=== PATIENT | female | born 1965 | race Caucasian/White ===

== ENCOUNTER → 2024-03-27 | Outpatient (CLI) | payer OTHER, SELFPAY ==
--- NOTE | 2024-03-27 08:52 | MRI_ITS ---
EXAM: MR CERVICAL SPINE WITHOUT INTRAVENOUS CONTRAST CLINICAL INDICATION: cervical myelopathy, NECK PAIN, RT ARM RADICULOPATHY TECHNIQUE: Multiplanar and multisequence MR images of the cervical spine without intravenous contrast were performed. COMPARISON: No relevant prior studies available. FINDINGS: VERTEBRAE: Minimal anterior listhesis of C3 on C4, C5 and C6 and C7 on T1 likely related to underlying degenerative change. No acute fracture. No bone marrow edema. There is preservation of the normal cervical lordosis. SPINAL CORD: Unremarkable in signal and morphology. SOFT TISSUES: Normal. No prevertebral soft tissue swelling. LYMPH NODES: Normal. There is no cervical adenopathy. DISCS/SPINAL CANAL/NEURAL FORAMINA: C2-C3: Normal disc height and morphology. Normal spinal canal. Normal neuroforamina. C3-C4: Normal disc height and morphology. Normal spinal canal. Normal neuroforamina. C4-C5: Normal disc height and morphology. Normal spinal canal. Normal neuroforamina. C5-C6: Mild to moderate disc space narrowing. Mild disc bulging without compression of the thecal sac. No spinal stenosis. Mild neural foraminal narrowing related to uncinate joint hypertrophy. C6-C7: Mild/moderate disc space narrowing. Mild right central disc protrusion results in mild narrowing of the right lateral recess and adjacent foramen. No significant spinal stenosis. Additional narrowing of the left neural foramen related to uncinate joint hypertrophy. C7-T1: Normal disc height and morphology. Normal spinal canal. Normal neuroforamina. MRI/Spine Cervical (Routine) IMPRESSION: 1. Mild degenerative changes as described without spinal stenosis. 2. Narrowing of the right C6-7 lateral recess related to disc protrusion. 3. Neural foraminal narrowing at C5-6 and C6-7 as described. Electronically Signed: Ramu Vila MD at 16:19 EST ,
== END | disposition home or self-care (01) ==
LOC: MRI 08:48
PROVIDERS: Referring Provider Student in an Organized Health Care Education/Training Program; Visit Provider Student in an Organized Health Care Education/Training Program
DX: G95.9 Disease of spinal cord, unspecified (principal)
CPT/HCPCS: 72141

== ENCOUNTER → 2024-05-19 | Outpatient (CLI) | payer OTHER, SELFPAY ==
--- NOTE | 2024-05-19 14:00 | NEURO ---
NCS and/or EMG Patient Report Ordering Doctor: Izaiah Diane DATE OF SERVICE: 05/19/24 Stefany presents for electrodiagnostic testing of the right upper limb. She reports numbness and tingling in the right hand. Electrodiagnostic findings: Right median motor nerve demonstrates normal distal latency, amplitude and conduction velocity. Right ulnar motor response is within normal limits, including conduction across the elbow. Normal right median and right ulnar F?waves. Sensory responses are normal. Needle EMG testing was performed the right upper limb. All muscles tested showed no evidence of denervation with normal motor unit action potentials. Electrodiagnostic impression: This is a normal electrodiagnostic study of the right upper limb. There is no electrodiagnostic evidence for peripheral neuropathy, including carpal tunnel or cubital tunnel syndrome. There is no electrodiagnostic evidence for cervical radiculopathy. Multi Select Codes Neurology Neurology Interp Codes: 47217-46 Musc test done w/n test comp (interp) and 06524-55 Nrv cndj test 7-8 studies (interp)
== END | disposition home or self-care (01) ==
LOC: PSN 13:22
PROVIDERS: Referring Provider Orthopaedic Surgery Orthopaedic Surgery of the Spine; Visit Provider Orthopaedic Surgery Orthopaedic Surgery of the Spine
DX: G56.20 Lesion of ulnar nerve, unspecified upper limb (principal)
CPT/HCPCS: 95886; 95910

== ENCOUNTER 2024-07-27 05:27 | Day surgery (SDC) | payer OTHER, SELFPAY ==
--- NOTE | 2024-07-15 07:59 | EKG12_ITS ---
Test Reason : PRE OP Blood Pressure : */* mmHG Vent. Rate : 71 BPM Atrial Rate : 71 BPM P-R Int : 138 ms QRS Dur : 92 ms QT Int : 376 ms P-R-T Axes : 77 95 49 degrees QTcB Int : 408 ms Normal sinus rhythm Possible Left atrial enlargement Rightward axis Incomplete right bundle branch block Borderline ECG Confirmed by PREMA AYALA, CAMILA ([id number]), medical editor EDILMA RODRIGUEZ ([id number]) on 07/16/2024 9:48:24 AM Referred By: Izaiah Diane Confirmed By: CAMILA LLOYD MD
[2024-07-15 08:52] LABS: Absolute Lymphocyte Count 2.06 X10^3/uL (0.83-4.51); Basophil# 0.01 X10^3/uL; Basophil% 0.2 % (0-1); Eosinophil# 0.17 X10^3/uL; Hematocrit 37.1 % (37-47); Hemoglobin 12.4 g/dL (12.0-15.0); Lymphocyte # 2.06 X10^3/ul (0.83-4.51); Lymphocyte % 35.9 % (19-41); Mean Corp Hgb Conc 33.4 g/dL (32-36); Mean Corpuscular Hgb 30.1 pg (27.0-32.0); Mean Platelet Vol. 9.5 fl (6.2-12.0); Monocyte# 0.49 X10^3/uL; Monocyte% 8.5 % (0-10); NRBC Flagged by Analyzer 0 % (0-5); Neutrophil % 52.2 % (47-70); Platelet Count 314 K/mm3 (150-450); RBC Distribution Width CV 13.1 % (11.6-14.6); RBC Distribution Width SD 43.5 fl (35.1-43.9); Red Blood Count 4.12 M/mm3 (4.2-5.4); White Blood Count 5.7 K/mm3 (4.4-11.0)
[2024-07-15 11:49] LABS: Anion Gap 15 (5-15); BUN 17 mg/dL (4-19); BUN/Creat Ratio 19.7 RATIO (10-20); Calcium,Total 9.8 mg/dL (7.6-11.0); Carbon Dioxide 22.1 mmol/L (21.0-32.0); Chloride 103 mmol/L (98-108); Creatinine, Serum 0.87 mg/dL (0.70-1.20); EST Glomerular Filtration Rate 76 (>60); Glucose 88 mg/dL (70-99); HIV Nonreactive (Nonreactive); Hepatitis C Antibody Nonreactive (Nonreactive); Magnesium 2.2 mg/dL (1.5-2.2); Potassium 3.9 mmol/L (3.3-5.1); Sodium Level 140 mmol/L (133-145)
[2024-07-15 18:08] LABS: Hepatitis B Surface Antibody REAC
--- NOTE | 2024-07-15 20:46 | PAT.ANESEVAL ---
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 When Was Last Pacemaker Check QUESTION #4 FULL TEXT: You/Your Family Experience fever (hyperthermia) with Anesthesia Last Oral Intake Last Oral intake: Last Oral Intake NPO since Meds taken in AM with sips of water? Meds patient instructed to take am of surgery PONV PONV - swimming pool plasterer helper: PONV - swimming pool plasterer helper Female Yes 07/13/24 13:54 HX of Motion Sickness Yes 07/13/24 13:54 HX of N/V After Surgery No 07/13/24 13:54 Non-Smoker Yes 07/13/24 13:54 Duration of Surgery greater Yes 07/13/24 13:54 than 60 minutes Number of Risk Factors 4 07/13/24 13:54 PONV Score Severe Risk 07/13/24 13:54 Height & Weight Height & Weight: Anesthesia: Height & Weight Height 5 ft 3 in 03/05/24 08:07 Respiratory Assessment Respiratory Assessment - swimming pool plasterer helper: Respiratory Tract Infection Hx - swimming pool plasterer helper Hx Respiratory Tract Infection No 07/13/24 13:54 STOP Sleep Apnea STOP Sleep Apnea - swimming pool plasterer helper: STOP Sleep Apnea - swimming pool plasterer helper Hx Hypertension No 07/13/24 13:54 Hx Sleep Apnea No 07/13/24 13:54 CPAP BIPAP Do you snore loudly (louder No 07/13/24 13:54 than talking or can be heard Do you often feel tired/ No 07/13/24 13:54 fatigued/ sleepy during daytime? Has anyone observed you stop No 07/13/24 13:54 breathing during sleep? STOP Results Negative 07/13/24 13:54 QUESTION #5 FULL TEXT : Do you snore loudly (louder than talking or can be heard through closed doors)? Tobacco Use History Tobacco Use History - swimming pool plasterer helper: Tobacco Use History - swimming pool plasterer helper Tobacco Use Smoking Status Never smoker 07/13/24 13:54 Hx Tobacco Use No 07/13/24 13:54 Years Smoking Packs Smoked per Day Smoking Cessation Date was within the last 15 years Hx Smoking Cessation Date Hx Smoking Cessation Counseling Hematologic Medial History Hematologic Hx - swimming pool plasterer helper: Hematologic Medical Hx - rehab spec Hx of Blood Transfusion No 07/13/24 13:54 Hx of Transfusion in last 3 No 07/13/24 13:54 Months Date of Last Transfusion (if within last 3 months) Ever experience any problems No 07/13/24 13:54 with transfusion(s)? Specify any problems Hx of Preganancy in last 3 N/A 07/13/24 13:54 Months Nurse Filling Out Transfusion NBUCHER 07/13/24 13:54 & Questions: Date: 07/13/24 07/13/24 13:54 Time: 13:55 07/13/24 13:54 Patient unable to answer at this time (ie. confused, unrespo /Reproduction History /Reproductive History - swimming pool plasterer helper: /Reproductive Hx- swimming pool plasterer helper Hx Now No 07/13/24 13:54 Gestational Age (in weeks): EDC: Hx Hx Para Hx Section SAB No 07/13/24 13:54 PFSH Medical History Wears glasses Electronic cigarette use Marijuana use Arthritis History of IBS Non-smoker Home Medications ?Medication ?Instructions ?Recorded ?Last Taken ?Type NK 03/05/24 Unknown History Allergy/AdvReac Type Severity Reaction Status Date / Time celecoxib (From Celebrex) Allergy Swelling Verified 06/01/24 13:08 hydrocodone (From Vicodin) Allergy Vomiting Verified 06/01/24 13:08 Surgical History (Updated 07/13/24 @ 14:01 by Marilynn Porter) History of colonoscopy H/O left knee surgery (~06/28/24) Hx of total hysterectomy (~1988) History of tonsillectomy Social History (Updated 05/11/24 @ 07:39 by Heidy Chavez) household members: spouse Smoking Status: Never smoker alcohol intake: current substance use type: marijuana Audit: Pertinent Findings Pertinent Findings EKG Perinent findings: April 02, 2024. Sinus rhythm. Anterior septal infarct, age undetermined. Left atrial enlargement consider biatrial enlargement. Recommendation Anesthesia Recommendation Anesthesia recommendation: OPTIMIZED for anesthesia
[2024-07-16 05:07] LABS: Hepatitis A AB, Total Negative (Negative)
[2024-07-27] VITALS (13 sets, daily range): BP systolic 101–123; BP diastolic 71–84; PULSE 56–71; RESP 12–18; TEMP 36.1–36.8; O2SAT 93–100
[2024-07-27] MEDS: 0.9% Normal Saline (1000mL) 1,000 ML 15 ML IV (05:55)
[2024-07-27] MEDS: Magnesium 1 GM over 15 mins IV (06:00)
[2024-07-27] MEDS: Acetaminophen 500 MG Tablet 1000 MG PO (06:16)
--- NOTE | 2024-07-27 06:23 | PRE.ANES_ITS ---
ASA Classification* ASA Classification ASA Classification: 3 Assessment & Plan Anesthesia* Anesthesia Assessment Anesthesia Assessment: Discussed sedation and/or anesthesia options, risks, benefits, and alternatives with patient/parents/legal guardian/POA. Questions invited. The patient/parents/legal guardian/POA seems to understand and agrees to proceed with anesthesia plan. Reviewed the physical assessment, medical history, allergy history and patient home medications list prior to surgery/procedure/anesthetic and documented any changes. Performed airway and anesthesia risk assessments. Anesthesia Type Anesthesia Type: General History Source History Obtained from:: Patient and Chart Anesthesia Focused Assessment* Temperature: 98.3 F Pulse Rate: 60 Blood Pressure: 101/71 Respiratory Rate: 16 Pulse Ox: 100 Oxygen Delivery Method: Room Air Airway Assessment Mouth opens: >3 cm Mallampati Score: IV Teeth Condition: Caps/Crowns (Patient has several crowns. They are all tight.) and Missing (Patient has several missing teeth. Rest are tight.) Neck Range of motion (ROM): Limited ROM Focused Labs Anesthesia Preop lab: CBC WBC 5.7 K/mm3 (4.4-11.0) 07/15/24 08:10 07/15/24 RBC 4.12 M/mm3 (4.2-5.4) L 07/15/24 08:10 07/15/24 Hgb 12.4 g/dL (12.0-15.0) 07/15/24 08:10 07/15/24 Hct 37.1 % (37-47) 07/15/24 08:10 07/15/24 Plt Count 314 K/mm3 (150-450) 07/15/24 08:10 07/15/24 CHEMISTRY Potassium 3.9 mmol/L (3.3-5.1) 07/15/24 08:10 07/15/24 Sodium 140 mmol/L (133-145) 07/15/24 08:10 07/15/24 Magnesium 2.2 mg/dL (1.5-2.2) 07/15/24 08:10 07/15/24 BUN 17 mg/dL (4-19) 07/15/24 08:10 07/15/24 Creatinine 0.87 mg/dL (0.70-1.20) 07/15/24 08:10 07/15/24 Glucose 88 mg/dL (70-99) 07/15/24 08:10 07/15/24 COAG Pre-Assessment Diagnosis/Proposed Procedure Planned Operative Procedure(s): Anterior cervical disc fusion C5-6 and C6-7 Anesthesia History 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 When Was Last Pacemaker Check QUESTION #4 FULL TEXT: You/Your Family Experience fever (hyperthermia) with Anesthesia Last Oral Intake Last Oral intake: Last Oral Intake NPO since 03:30 07/27/24 05:50 Meds taken in AM with sips of No 07/27/24 05:50 water? Meds patient instructed to take am of surgery Any additional information?: Yes NPO since: 03:30 (Patient had her preop Ensure at 3:30 AM.) PONV PONV - hvac technician residential: PONV - hvac technician residential Female Yes 07/13/24 13:54 HX of Motion Sickness Yes 07/13/24 13:54 HX of N/V After Surgery No 07/13/24 13:54 Non-Smoker Yes 07/13/24 13:54 Duration of Surgery greater Yes 07/13/24 13:54 than 60 minutes Number of Risk Factors 4 07/13/24 13:54 PONV Score Severe Risk 07/13/24 13:54 Height & Weight Height & Weight: Anesthesia: Height & Weight Height 5 ft 3 in 07/27/24 05:50 Weight: 51.3 kg 07/27/24 05:50 Body Mass Index (BMI) 20.0 07/27/24 05:50 Respiratory Assessment Respiratory Assessment - hvac technician residential: Respiratory Tract Infection Hx - hvac technician residential Hx Respiratory Tract Infection No 07/13/24 13:54 STOP Sleep Apnea STOP Sleep Apnea - hvac technician residential: STOP Sleep Apnea - hvac technician residential Hx Hypertension No 07/13/24 13:54 Hx Sleep Apnea No 07/13/24 13:54 CPAP BIPAP Do you snore loudly (louder No 07/13/24 13:54 than talking or can be heard Do you often feel tired/ No 07/13/24 13:54 fatigued/ sleepy during daytime? Has anyone observed you stop No 07/13/24 13:54 breathing during sleep? STOP Results Negative 07/13/24 13:54 QUESTION #5 FULL TEXT : Do you snore loudly (louder than talking or can be heard through closed doors)? Tobacco Use History Tobacco Use History - hvac technician residential: Tobacco Use History - hvac technician residential Tobacco Use Smoking Status Never smoker 07/13/24 13:54 Hx Tobacco Use No 07/13/24 13:54 Years Smoking Packs Smoked per Day Smoking Cessation Date was within the last 15 years Hx Smoking Cessation Date Hx Smoking Cessation Counseling Hematologic Medial History Hematologic Hx - hvac technician residential: Hematologic Medical Hx - critical care paramedic Hx of Blood Transfusion No 07/13/24 13:54 Hx of Transfusion in last 3 No 07/13/24 13:54 Months Date of Last Transfusion (if within last 3 months) Ever experience any problems No 07/13/24 13:54 with transfusion(s)? Specify any problems Hx of Preganancy in last 3 N/A 07/13/24 13:54 Months Nurse Filling Out Transfusion NBUCHER 07/13/24 13:54 & Questions: Date: 07/13/24 07/13/24 13:54 Time: 13:55 07/13/24 13:54 Patient unable to answer at this time (ie. confused, unrespo /Reproduction History /Reproductive History - hvac technician residential: /Reproductive Hx- hvac technician residential Hx Now No 07/13/24 13:54 Gestational Age (in weeks): EDC: Hx Hx Para Hx Section SAB No 07/13/24 13:54 Active Medications Active Medications: Current Medications Generic Name Dose Route Start Last Admin Trade Name Freq PRN Reason Stop Dose Admin Acetaminophen 1,000 mg 07/27/24 07:30 07/27/24 06:16 Acetaminophen 500 Mg Tablet PO 07/27/24 07:31 1,000 mg X1 ONE Administration Dexamethasone Sodium Phosphate 8 mg 07/27/24 07:30 Dexamethasone 10 Mg/Ml Vial IV 07/27/24 07:31 X1 ONE Dexamethasone Sodium Phosphate 4 mg 07/27/24 07:30 Dexamethasone 4 Mg/Ml Vial IV 07/27/24 07:31 X1 ONE Cefazolin Sodium 2 gm/ N/A 20 mls @ 400 mls/hr 07/27/24 07:30 IV 07/27/24 07:32 PREOP ONE Tranexamic Acid 1,000 mg/ 110 mls @ 440 mls/hr 07/27/24 07:30 Sodium Chloride IV 07/27/24 07:44 X1 ONE Tranexamic Acid 1,000 mg/ 110 mls @ 440 mls/hr 07/27/24 07:30 Sodium Chloride IV 07/27/24 07:44 X1 ONE Magnesium Sulfate 1 gm/ 102 mls @ 408 mls/hr 07/27/24 07:30 07/27/24 06:00 Dextrose IV 07/27/24 07:44 408 mls/hr X1 ONE Administration Sodium Chloride 1,000 mls @ 15 mls/hr 07/27/24 05:40 07/27/24 05:55 IV 15 mls/hr .Q48H SUSAN Administration Insulin Human Lispro 1 - 6 unit 07/27/24 07:30 Insulin Lispro 100 Unit/Ml Insuln.Pen SC 07/27/24 18:00 Q4H PRN PRN BG>/= 180, SEE PROTOCOL Protocol PFSH Medical History Wears glasses Electronic cigarette use Marijuana use Arthritis History of IBS Non-smoker Home Medications ?Medication ?Instructions ?Recorded ?Last Taken ?Type NK 03/05/24 Unknown History Allergy/AdvReac Type Severity Reaction Status Date / Time celecoxib (From Celebrex) Allergy Swelling Verified 07/27/24 06:10 hydrocodone (From Vicodin) Allergy Vomiting Verified 07/27/24 06:10 Surgical History History of colonoscopy H/O left knee surgery (~06/28/24) Hx of total hysterectomy (~1988) History of tonsillectomy Social History household members: spouse Smoking Status: Never smoker alcohol intake: current substance use type: marijuana Review of Systems (Anesthesia) ROS Narrative System reviewed and no additional complaints, except as documented.
--- NOTE | 2024-07-27 06:30 | RAD_ITS ---
PROCEDURE: CERV SPINE 2 OR 3 VIEWS 07/27/2024 REASON FOR EXAM: ANTERIOR CERVICAL DISC FUSION C5-6 AND C6-7 TECHNIQUE: Intraoperative fluoroscopy with 7 spot views submitted COMPARISON: None available FINDINGS: Fluoroscopy time 13.0 seconds Total dose 0.60 mGy Spot images show intervertebral disc spacers and anterior cervical disc fusion C5 through C7. RAD/Cerv Spine 2 or 3 Views IMPRESSION: Intraoperative fluoroscopy as above. Reading Location: [id number]
--- NOTE | 2024-07-27 07:19 | HP.PCM_ITS ---
History and Physical Date of Admission: 07/27/24 MR#: [id number] Acct: [id number] Name: CHARLIE TREVINO Rep #: [id number] : 1965 Provider: Dr. Izaiah Diane MD Age/Sex: 59/F [place] [facility] [place] Status: Signed Intake Vital Signs 03/05/2408:07 07/20/2508:00 Height 5 ft 3 in 5 ft 3 in Weight: 112 lb BMI 19.8 Intake Visit Reasons: cervical spine Chief Complaint: pre-op cervical spine Is patient in pain?: Yes Pain scale (1-10): 6 Allergies celecoxib (From Celebrex) Allergy (Verified 07/20/24 09:02) Swellinghydrocodone (From Vicodin) Allergy (Verified 07/20/24 09:02) Vomiting Medications ?Medication ?Instructions ?Recorded ?Confirmed ?Type NK 03/05/24 07/20/24 History PFSH Medical History Wears glasses Electronic cigarette use Marijuana use Arthritis History of IBS Non-smoker Surgical History History of colonoscopy H/O left knee surgery (~06/28/24) Hx of total hysterectomy (~1988) History of tonsillectomy Social History household members: spouse Smoking Status: Never smoker alcohol intake: current substance use type: marijuana HPI cervical spine Details: This documentation accurately reflects the service provided and the decisions made by me, Dr. Izaiah Diane MD 07/20/24 0855. Part of today?s visit was documented by Karina Melgar ATC, acting as scribe. CHARLIE TREVINO is a 59 year old F here today for cervical spine pre-op for anterior cervical disc fusion C5-6 and C6-7 DOS 07/27/2024. Patient complains of pain from the right side of the neck to the top and back of the right shoulder. She states the pins and needles feeling has since went away. Patient states the pain is pretty much staying the same. She does have a numbness feeling down the right arm constantly and will wake her up in the middle of the night. 06/01/24: CHARLIE TREVINO is a 59 year old F here today for a followup after her EMG. Patient notes that she continues to feel the same. She notes that she has numbness and tingling into her right forearm. She notes that in the morning she has right hand numbness. She says that this doesn't change no matter how her arm is positioned in sleep. She gets numbness in her 4th and 5th finger. Patient has a sharp pain into her traps. She notes that if she pushes on her trap, she has a sharp pain into the base of her skull but it also causes numbness into her fingers. She denies any recent injections. Denies any changes in her symptoms. Denies any dexterity issues. She also reports muscle spasms in her neck. She has a colonoscopy scheduled on Friday. She is also in physical therapy for knee. HPI from 05/11/24: CHARLIE TREVINO is a 59 year old F here today for a followup on her cervical spine. Patient notes that she has increased neck pain with cervical spine range of motion. Patient notes that she sees pain management and had a cervical spine injection, which has helped with the numbness of her right arm. She does have numbness into her 4th and 5th finger but it isnt constant. She states that her pain increases with activities. Says that her pain also extends from her right 4th and 5th fingers to her elbow and back to her right triceps to her shoulder. Says that her worst pain is located over her right paraspinal. She had an MRI which is here for review. Patient notes that she is not taking anything for pain as it isnt helpful. She uses medical marijuana which is helpful. Says that she had an EMG years ago which was negative. Patient just had a knee arthroscopy about 10 days ago. Said that she had stomach bleeding after the surgery and has a colonoscopy planned for May. HPI from 03/05/24: CHARLIE TREVINO is a 58 year old F here today for neck pain that she has had since the 1999' and has gotten worse overtime. She has seen a neurosurgeon in [place] many years ago but she did not feel comfortable with him. She states that the pain is going down her back and that she does numbness down the right arm. This pain goes down the back of her arm to her little finger and the front/side of her arm to her thumb. No left sided pain. Says that her dexterity has decreased and that she has dropped objects out of her right hand. She is right hand dominant. She has had injections with Dr Milner before and the last one was 2 years ago. She states that she has done PT in the past and the only thing that gave her relief was when they did traction. She does at home exercises 3-4 times per week for the last several years with no relief. She does get headaches frequently from her neck pain that she has been having since she was 17. She states that any movement or heavy lifting increases her pain. She hasn't had any recent imaging since 2020. Says that she has been tested for carpal tunnel in the past which was negative. Ortho Exam General General: Yes no acute distress Neurologic: Yes alert and Yes oriented x3 Spine SPINE TESTING CERVICAL THORACIC LUMBAR Musculoskeletal Strength 0=absent - 5=normal Details: Neurological exam of the upper extremities shows 5x5 power. Normal sensation across all dermatomes. Brisk knee reflexes. Midline tenderness and right paraspinal tenderness. Romberg's negative. Single leg stand shows good balance. Higinio's negative. Coding Level of Care Code Off vis,est,level 4 Diagnoses Spondylolisthesis, cervical region M43.12 Cervical radiculopathy M54.12 Cubital tunnel syndrome on right G56.21 Time Spent (min) 35 Assessment and Plan Assessment and Plan (1) Spondylolisthesis, cervical region: Status: Acute (2) Cervical radiculopathy: Status: Acute (3) Cubital tunnel syndrome on right: Status: Acute Plan Again reviewed xrays shows an anterolisthesis at C3-4 and C5-6 with dynamic instability on flexion/extension views and loss of normal cervical lordosis. Reviewed cervical MRI from 03/27/24 which showed narrowing of the right C6-7 lateral recess related to disc protrusion and neural foraminal narrowing at C5-6 and C6-7. Mild central stenosis noticed from C4-7. No cord indentation or cord signal changes. Reviewed right upper extremity EMG from 05/19/24 which was normal. Again explained imaging findings in detail. Explained the EMG often has low sensitivity and specificity. Her most of her symptoms seem to be arising from the neck, cubital tunnel syndrome cannot be completely ruled out given the EMG was normal. Discussed treatment options for cervical radiculopathy which include continued nonoperative measures versus surgery. Patient has had the symptoms for prolonged period of time for many years and she has had numerous injections without much relief. At this point she wishes to proceed with surgical intervention. Explained that a cervical procedure may not alleviate her numbness in her medial hand primarily over the right ring and little finger. 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 Recommended a C5-7 ACDF. Explained risks and benefits of the surgery in detail. The risks include but are not limited to infection, bleeding, hematoma formation, need for further surgery, injury to nerves and vessels, vascular injury, dysphagia, dysphonia, recurrent laryngeal nerve injury, Nii syndrome, pseudoarthrosis, hardware failure, adjacent segment degeneration, DVT, pulm embolism, pneumonia, atelectasis, cardiopulmonary event. Patient understands and agrees to proceed with surgery. Consent was signed.
[2024-07-27] MEDS: dexAMETHasone 4 MG/ML Vial IV (07:30)
[2024-07-27] MEDS: Cefazolin 2 GM in Syringe 10 ML IV (07:42)
[2024-07-27] MEDS: TRANEXAMIC ACID 1,000 MG in 0.9% Normal Saline (100mL Bag) 100 ML 440 MG IV ×2 (07:48→09:21)
[2024-07-27] MEDS: dexAMETHasone 10 MG/ML Vial 8 MG IV (07:48)
--- NOTE | 2024-07-27 10:01 | PCM.OPRPT ---
Procedures Musculoskeletal [id number]-[id number]: Other Procedure See Report Operative Report (Standard) Operative Information Date of Procedure: 07/27/24 Pre-Operative Diagnosis: C5-7 disc degeneration, stenosis, radiculopathy Post-Operative Diagnosis: Same Surgery/Procedure Performed: C5-7 ACDF scientific programmer analyst: Yes Credit Collection Specialist: Shazia Obregon Tasks completed by field administrative assistant: Closing, Removing tissue, Implanting device, Hemostasis: Electrocautery and Retracting Type of Anesthesia: General RN Documented Start/Stop Times: Operation Date: 07/27/24 07:30 Case Time Into Pre-Op 07/27/24 05:37 Out of Pre-Op 07/27/24 07:27 Anesthesia Start 07/27/24 07:30 Into Room 07/27/24 07:30 Procedure Start 07/27/24 08:04 Procedure End 07/27/24 09:46 Anesthesia End 07/27/24 09:57 Out of Room 07/27/24 09:57 Procedure Start Time: 08:04 Procedure Stop Time: 09:46 Select all DRAINS/GRAFTS/IMPLANTS that apply: Graft Graft details: Structural allograft cortical cancellous strut, DBX and Implanted device Implanted device details: Medtronic Wildorado Elite plate instrumentation Estimated Blood Loss: 10 cc Specimen collected: No Description of surgery: Preoperative diagnosis: C5-7 disc degeneration with stenosis, radiculopathy Postoperative diagnosis: Same Name of procedure: C5-7 anterior cervical discectomy and fusion with plate instrumentation - Anterior cervical fusion C5-6, CPT code 13601 - Anterior plate instrumentation C5-7, CPT code 66487/59 - Anterior cervical fusion C6-7, CPT code 34123/51 -C5-6 structural allograft bone with DBX, CPT code 39773 - C6-7 structural allograft bone with DBX, CPT code 07084 Attending surgeon: Izaiah Diane M.D. Anesthesia: Gen. endotracheal Estimated blood loss: 10 mL Complications: None Instrumentation used: Medtronic Wildorado Elite plate, LASR corticocancellous block Indications: The patient is a pleasant 59-year-old lady who presented with neck pain, right worse than left upper extremity radiation. MRI showed C5-7 disc degeneration with foraminal stenosis. After prolonged course of nonsurgical treatment, the patient requested surgical treatment. All risks and benefits of the procedure were explained to the patient. The risks include but are not limited to infection, bleeding, injury to nerves and vessels, vertebral artery injury, spinal cord injury, paralysis, vocal cord paralysis, injury to esophagus, pseudoarthrosis, need for further procedures, adjacent segment degeneration. Procedure: The patient was identified in the preoperative suite using unique patient identifiers. Skin was marked consent was taken and all questions were answered. The patient was then brought back to the operative room and a timeout was performed. General endotracheal anesthesia was given. Intraoperative neuro monitoring leads were applied. The patient was carefully positioned supine on a regular OR table. A lateral view with a C-arm was done to identify the level and to define the incision. The anterior neck was then prepped and draped in the usual fashion. A final timeout was then performed. A transverse skin incision was taken to the left of midline. Subcutaneous tissue was then divided with Bovie. Platysma was identified and cut along the incision with scissors. The fascial interval between the sternocleidomastoid and the larynx was developed. Omohyoid was identified and retracted. The esophagus with the larynx was retracted medially to reach the prevertebral fascia. Marker x-ray was performed with bent spinal needle and disc space and levels were confirmed. Longus coli muscle was elevated on both sides at and above and below the C5-7 discs. Self-retaining retractors were then placed. A long handle knife was then used to perform annulotomy at C5-6. Disc fragments were removed with the pituitary. Taylor pins were placed in C5 and C6 for disc distraction. Curettes and bur was utilized to remove cartilage from the endplates. Discectomy was performed laterally up to the uncovertebral joints. Posterior osteophytes were thinned down with the bur and adequate decompression in the central and foraminal areas were performed and PLL was thinned out. Once the disc space was prepared, trials of various sizes were utilized. Thorough irrigation was given. 6 mm LASR cortical cancellous allograft bone large footprint was then fashioned in such a way that concavities were burred out inferiorly and superiorly and half cc of DBX (demineralized bone matrix) was squeezed into the cancellous portion. The graft was then inserted into the C5-6 disc space. The retractors were then repositioned and the procedure was repeated for C6-7 disc with complete discectomy. Graft size was 6 mm at with large footprint at C6-7. The grafts were found to be in good apposition with good pullout strength. A 40 mm Medtronic Wildorado Elite plate was then fixed to C5-7 with 15 mm screws. A lateral x-ray was then taken to check the length of the screws. Both AP and lateral x-rays showed good positioning of plate and screws. The locking mechanism over the screw heads was then turned. Thorough irrigation was again given. Hemostasis was achieved. Closure was done with 3-0 Vicryl for the platysma and subcutaneous tissue layers and 4-0 Monocryl for the skin. Steri-Strips were applied and dressing was done with 4 x 4 gauze and Tegaderm. A cervical collar was then applied. The patient was then woken up from anesthesia extubated and taken to PACU in stable condition. Intraoperative neuro monitoring was performed throughout this procedure. Motor evoked potentials were run periodically. All potentials remained at baseline throughout the procedure. I was present for the entire surgery and performed the surgery myself. Surgical Findings: See operative note Complications Complications: No
--- NOTE | 2024-07-27 10:05 | PCM.POST.ANE ---
Anesthesia: Postop Eval I Current Vital Signs Temperature: 97 F Pulse Rate: 71 Blood Pressure: 122/73 Respiratory Rate: 16 Pulse Ox: 95 Oxygen Delivery Method: Room Air Assessment Airway patent: Yes Spontaneous unlabored respirations: Yes Mental status: Awake and Calm nausea: Yes Vomiting: No Anesthesia Complication: No Fluid Hydration Crystalloid volume administer (ml): 900 Total IV fluid infused: 900 Progress Note Anesthesia document: Postop Eval 1 completed: Yes
--- NOTE | 2024-07-27 11:08 | POSTOPAN2_ITS ---
Anesthesia Postop Eval I Sum Postop Eval Completion status Anesthesia document: Postop Eval 1 completed: Yes Anesthesia Postop Eval I Summary Anesthesia Postop Eval I Summary: Anesthesia Postop Eval I: Assessment Summary Airway patent Yes 07/27/24 10:06 FOUNDRY [email or web address] Spontaneous unlabored Yes 07/27/24 10:06 FOUNDRY [email or web address] respirations Mental status Awake,Calm 07/27/24 10:06 FOUNDRY [email or web address] nausea Yes 07/27/24 10:06 FOUNDRY [email or web address].GDOTT Vomiting No 07/27/24 10:06 FOUNDRY [email or web address].GDOTT Anesthesia Postop Eval I: Fluid Summary Crystalloid volume administer 900 07/27/24 10:06 FOUNDRY [email or web address].GDOTT (ml) Colloids volume administered ( ml) Blood Product volume administered (ml) Total IV fluid infused 900 07/27/24 10:06 FOUNDRY [email or web address].GDOTT Anesthesia Postop Eval I: Summary Notes Anesthesia Complication No 07/27/24 10:06 FOUNDRY [email or web address].[email or web address] Anesthesia Complication Comment: Post-operative progress note Anesthesia: Postop Eval II Evaluation Mental status: Awake and Calm Pain Level: 0 nausea: No Vomiting: No Complications Anesthesia Complication: No
--- NOTE | 2024-07-27 11:08 | PCM.POSTANE2 ---
Anesthesia Postop Eval I Sum Postop Eval Completion status Anesthesia document: Postop Eval 1 completed: Yes Anesthesia Postop Eval I Summary Anesthesia Postop Eval I Summary: Anesthesia Postop Eval I: Assessment Summary Airway patent Yes 07/27/24 10:06 INSPECTOR [email or web address] Spontaneous unlabored Yes 07/27/24 10:06 INSPECTOR [email or web address].[email or web address] respirations Mental status Awake,Calm 07/27/24 10:06 INSPECTOR [email or web address].[email or web address] nausea Yes 07/27/24 10:06 INSPECTOR GENERAL.GDOTT Vomiting No 07/27/24 10:06 INSPECTOR GENERAL.GDOTT Anesthesia Postop Eval I: Fluid Summary Crystalloid volume administer 900 07/27/24 10:06 INSPECTOR [email or web address].GDOTT (ml) Colloids volume administered ( ml) Blood Product volume administered (ml) Total IV fluid infused 900 07/27/24 10:06 INSPECTOR [email or web address].GDOTT Anesthesia Postop Eval I: Summary Notes Anesthesia Complication No 07/27/24 10:06 INSPECTOR GENERAL.GDOTT Anesthesia Complication Comment: Post-operative progress note Anesthesia: Postop Eval II Evaluation Mental status: Awake and Calm Pain Level: 0 nausea: No Vomiting: No Complications Anesthesia Complication: No
[2024-07-27] MEDS: oxyCODONE 5 MG Tablet PO (11:47)
== END 2024-07-27 13:03 | disposition home or self-care (01) ==
LOC: SDC 05:27 → AC 05:29
PROVIDERS: Referring Provider Orthopaedic Surgery Orthopaedic Surgery of the Spine; Visit Provider Orthopaedic Surgery Orthopaedic Surgery of the Spine
PROC: (CPT 22551; principal; 2024-07-27 07:00)
DX: M50.122 Cervical disc disorder at C5-C6 level with radiculopathy (principal); M50.123 Cervical disc disorder at C6-C7 level with radiculopathy; M43.12 Spondylolisthesis, cervical region; M48.02 Spinal stenosis, cervical region
CPT/HCPCS: 22551; 22552; 00600; 36415; 72040; 76000; 80048; 83735; 85025; 86703; 86706; 86708; 86803; 86850; 86900; 86901; 87081; 93005; C1713; J2405; J3475